=== PATIENT | female | born 1990 | race Caucasian/White ===

== ENCOUNTER 2020-10-12 19:16 | Emergency (ER) | payer SELFPAY ==
[~2020-10-12] VITALS: Ht 157.5 cm; Wt 80.6 kg
--- NOTE | 2020-10-12 20:00 | NUR ---
Pt changing to gown.
--- NOTE | 2020-10-12 20:18 | NUR ---
OSMAN Jackson at bedside.
[2020-10-12] MEDS ORDERED: METHOCARBAMOL 750 MG TABLET ONE (20:27)
[2020-10-12] MEDS ORDERED: ONDANSETRON ODT 4 MG ONE (20:27)
[2020-10-12] MEDS ORDERED: METHOCARBAMOL 750 MG TABLET PO ONE (20:30)
[2020-10-12] MEDS ORDERED: ONDANSETRON ODT 4 MG PO ONE (20:30)
--- NOTE | 2020-10-12 20:30 | NUR ---
Medicated per EMAR.
--- NOTE | 2020-10-12 21:13 | NUR ---
Reports no relief from medications; says "my head hurts so bad". VSS
[2020-10-12] MEDS ORDERED: DIPHENHYDRAMINE 50 MG/ML, 1ML ONE (21:27)
[2020-10-12] MEDS ORDERED: PROCHLORPERAZINE 5 MG/ML, 2ML ONE (21:28)
[2020-10-12] MEDS ORDERED: KETOROLAC 30 MG/1 ML ONE (21:28)
[2020-10-12] MEDS ORDERED: DIPHENHYDRAMINE 50 MG/ML, 1ML IVPush ONE (21:30)
[2020-10-12] MEDS ORDERED: SODIUM CHLORIDE 0.9% 1,000ML IVBOLUS ONE (21:30)
[2020-10-12] MEDS ORDERED: KETOROLAC 30 MG/1 ML IVPush ONE (21:30)
[2020-10-12] MEDS ORDERED: PROCHLORPERAZINE 5 MG/ML, 2ML IVPush ONE (21:30)
--- NOTE | 2020-10-12 21:41 | NUR ---
IV started, IVF wide open. Medicated per MAR. On cont pulse ox, b/p. AIDET provided.
--- NOTE | 2020-10-12 22:05 | NUR ---
IVF still infusing, pt sleeping wakes up with verbal says no pain now. VSS.
[2020-10-12 22:23] VITALS: BP 102/65
== END 2020-10-12 22:24 | disposition home or self-care (01) ==
LOC: ED 21:30
DX: G44.209 Tension-type headache, unspecified, not intractable (principal); M54.2 Cervicalgia; R07.89 Other chest pain; R11.0 Nausea
CPT/HCPCS: 93005; 96361; 96374; 96375; 99284; J0780; J1200; J1885; J7030; Q0162

== ENCOUNTER 2021-04-20 12:06 | Emergency (ER) | payer SELFPAY ==
[~2021-04-20] VITALS: Ht 157.5 cm; Wt 80.6 kg
[2021-04-20 12:27] VITALS: BP 125/82
== END 2021-04-20 13:22 | disposition home or self-care (01) ==
LOC: ED 12:30
DX: N64.4 Mastodynia (principal)
CPT/HCPCS: 99282